=== PATIENT | male | born 1950 | race Hispanic/Latino ===

== ENCOUNTER 2020-07-13 22:20 | Inpatient (IN) | payer MEDICARE ==
[~2020-07-13] VITALS: Ht 160 cm; Wt 65.3 kg
[2020-07-13 23:10] LABS: BASOPHILS % 0.3 % (0.0-1.0); EOSINOPHILS % 0.4 % (0.0-6.0); HEMATOCRIT 23.7 % (38.2-49.6); HEMOGLOBIN 8.1 g/dL (14.0-18.0); LYMPHOCYTES # (AUTO) 1.7 (1.0-3.2); LYMPHOCYTES % 17.1 % (18.0-39.1); MEAN CORPUSCULAR HGB CONC 34.2 g/dL (31-35); MEAN CORPUSCULAR VOLUME 90.8 fL (81-99); MONOCYTES # (AUTO) 1.2 (0.2-0.8); NEUTROPHILS # (AUTO) 6.2 (2.1-6.9); NEUTROPHILS % 62.9 % (38.7-80.0); PLATELET COUNT 147 x10e3/uL (140-360); RED BLOOD COUNT 2.61 x10e6/uL (4.3-5.7); RED CELL DISTRIBUTION WIDTH 13.4 % (11.7-14.4)
[2020-07-13 23:20] LABS: INR 1.13; PROTHROMBIN TIME 15.1 seconds (11.9-14.5)
[2020-07-13 23:33] LABS: ALANINE AMINOTRANSFERASE 9 IU/L (0-55); ALBUMIN/GLOBULIN RATIO 1.3 (0.8-2.0); ALKALINE PHOSPHATASE 78 IU/L (40-150); ANION GAP 13.3 mmol/L (8-16); BLOOD UREA NITROGEN 12 mg/dL (7-26); BUN/CREATININE RATIO 18 (6-25); CALCIUM 7.7 mg/dL (8.4-10.2); CARBON DIOXIDE 26 mmol/L (22-29); CHLORIDE 99 mmol/L (98-107); CREATININE, SERUM 0.68 mg/dL (0.72-1.25); EST GLOMERULAR FILTRATION RATE > 60 ML/MIN (60-); GLUCOSE 164 mg/dL (74-118); POTASSIUM 3.3 mmol/L (3.5-5.1); SODIUM 135 mmol/L (136-145)
[2020-07-13] MEDS ORDERED: IOPAMIDOL 370 MG/ML 200 ML INFUS..BTL INJ ONE (23:57)
[2020-07-13] MEDS ORDERED: SODIUM CHLORIDE 0.9% 100 ML ONE (23:58)
[2020-07-14] VITALS (7 sets, daily range): BP systolic 113–139; BP diastolic 53–74
[2020-07-14 01:19] LABS: BAND NEUTROPHILS % (MANUAL) 1 %; HYPOCHROMASIA SLIGHT; LYMPHOCYTES % (MANUAL) 10 % (19-48); MONOCYTES % (MANUAL) 13 % (3.4-9.0); NEUTROPHILS % (MANUAL) 71 % (40-74); PLATELET ESTIMATE ADEQUATE; PLATELET MORPHOLOGY COMMENT NORMAL; POIKILOCYTOSIS SLIGHT; PROMYELOCYTES % (MANUAL) 3 % (0-0)
[2020-07-14] MEDS: SODIUM CHLORIDE 0.9% 1000ML 1,000 ML IV SCH ×3 (05:49→16:56)
[2020-07-14] MEDS ORDERED: NOVOLIN R100 UNIT/1 (10:10)
[2020-07-14] MEDS ORDERED: HUMULIN R100 UNIT/2 (10:11)
[2020-07-14] MEDS ORDERED: LEVEMIR FL100 UNIT/1 SC (10:17)
[2020-07-14] MEDS ORDERED: AMLODIPINE BESYL5 MG PO (10:22)
[2020-07-14] MEDS ORDERED: ATOVAQUONE750 MG/5 M PO (10:22)
[2020-07-14] MEDS ORDERED: BENZONATATE100 MG PO (10:22)
[2020-07-14] MEDS ORDERED: AMLODIPINE BESYLATE 5 MG TAB PO ONE (12:00)
[2020-07-14] MEDS: INSULIN REGULAR, HUMAN 100 UNIT/1 ML 3ML VIAL SQ SCH ×2 (12:00→16:56)
[2020-07-14] MEDS: INSULIN GLARGINE 100 UNITS/ML VIAL SQ SCH ×2 (12:54→16:56)
[2020-07-14] MEDS: BENZONATATE 100 MG CAP PO SCH ×2 (14:09→19:55)
[2020-07-14 15:55] LABS: CREATINE KINASE MB 1.4 ng/mL (0-5.0)
[2020-07-15] VITALS (9 sets, daily range): BP systolic 132–139; BP diastolic 63–70
[2020-07-15 01:34] LABS: CREATINE KINASE MB 1.4 ng/mL (0-5.0)
[2020-07-15 06:20] LABS: BASOPHILS % 0.4 % (0.0-1.0); EOSINOPHILS # (AUTO) 0.2 (0.0-0.4); EOSINOPHILS % 3.4 % (0.0-6.0); HEMATOCRIT 26.1 % (38.2-49.6); HEMOGLOBIN 8.7 g/dL (14.0-18.0); LYMPHOCYTES # (AUTO) 1.2 (1.0-3.2); LYMPHOCYTES % 21.7 % (18.0-39.1); MEAN CORPUSCULAR HEMOGLOBIN 29.5 pg (28-32); MEAN CORPUSCULAR HGB CONC 33.3 g/dL (31-35); MEAN CORPUSCULAR VOLUME 88.5 fL (81-99); MONOCYTES % 17.6 % (4.4-11.3); NEUTROPHILS % 52.6 % (38.7-80.0); PLATELET COUNT 149 x10e3/uL (140-360); RED BLOOD COUNT 2.95 x10e6/uL (4.3-5.7); RED CELL DISTRIBUTION WIDTH 13.3 % (11.7-14.4)
[2020-07-15 06:56] LABS: ALANINE AMINOTRANSFERASE 7 IU/L (0-55); ALBUMIN 2.9 g/dL (3.5-5.0); ALBUMIN/GLOBULIN RATIO 1.2 (0.8-2.0); ALKALINE PHOSPHATASE 72 IU/L (40-150); ANION GAP 11.4 mmol/L (8-16); BLOOD UREA NITROGEN 8 mg/dL (7-26); BUN/CREATININE RATIO 15 (6-25); CALCIUM 7.8 mg/dL (8.4-10.2); CARBON DIOXIDE 25 mmol/L (22-29); CHLORIDE 105 mmol/L (98-107); CREATININE, SERUM 0.54 mg/dL (0.72-1.25); EST GLOMERULAR FILTRATION RATE > 60 ML/MIN (60-); GLUCOSE 94 mg/dL (74-118); POTASSIUM 3.4 mmol/L (3.5-5.1); SODIUM 138 mmol/L (136-145)
[2020-07-15] MEDS: INSULIN REGULAR, HUMAN 100 UNIT/1 ML 3ML VIAL SQ SCH ×3 (08:00→17:00)
[2020-07-15] MEDS: INSULIN GLARGINE 100 UNITS/ML VIAL SQ SCH ×2 (09:00→17:00)
[2020-07-15] MEDS ORDERED: ATOVAQUONE 750 MG/5 ML SUSP PO SCH ×2 (09:00→14:00)
[2020-07-15] MEDS: SODIUM CHLORIDE 0.9% 1000ML 1,000 ML IV SCH ×2 (09:09→11:30)
[2020-07-15] MEDS: BENZONATATE 100 MG CAP PO SCH ×2 (09:49→17:01)
[2020-07-15] MEDS ORDERED: POTASSIUM CHLORIDE 10MEQ EA PO ONE (16:00)
== END 2020-07-15 21:04 | DRG 394 ==
LOC: ER 22:41 → ERHOLD 07-14 03:48 → MED/SURG3 07-14 03:57
DX: K62.89 Other specified diseases of anus and rectum (principal); M31.30 Wegener's granulomatosis without renal involvement; E11.9 Type 2 diabetes mellitus without complications; F41.9 Anxiety disorder, unspecified; D69.6 Thrombocytopenia, unspecified; D64.9 Anemia, unspecified
CPT/HCPCS: 36415; 74174; 80053; 82550; 82553; 82948; 83690; 84484; 85014; 85025; 85610; 86850; 86900; 93005; 99284; J7030; J7050; Q9967; U0002